=== PATIENT | male | born 1970 | race African-American/Black ===

== ENCOUNTER 2020-03-13 09:29 | Emergency (ER) | payer OTHER, MEDICAID ==
[2020-03-14] MEDS ORDERED: P50 MT (13:42)
[2020-03-14] MEDS ORDERED: AZIT250T12 MT (13:42)
[2020-03-14] MEDS ORDERED: ALBU6.7H9 INH (13:52)
== END 2020-03-13 09:40 | disposition left against medical advice (07) ==
LOC: ER 09:29
DX: R06.02 Shortness of breath (principal); R05 Cough; R07.89 Other chest pain; Z53.21 Procedure and treatment not carried out due to patient leaving prior to being seen by health care provider

== ENCOUNTER 2020-03-14 10:55 | Emergency (ER) | payer OTHER, MEDICAID ==
[~2020-03-14] VITALS: Ht 193 cm; Wt 87.0 kg
[2020-03-14] MEDS ORDERED: IPRATROPIUM BROMIDE (0.02%) 0.5MG/2.5ML NEB HHN STA (11:21)
[2020-03-14] MEDS ORDERED: ALBUTEROL (0.083%) 2.5MG/3ML NEB HHN STA (11:21)
[2020-03-14] MEDS ORDERED: PREDNISONE 20MG TABLET PO STA (11:21)
[2020-03-14] MEDS ORDERED: METHYLPREDNISOLONE SOD SUCC 125 MG/2 ML VIAL IV ONE (11:30)
[2020-03-14] MEDS ORDERED: CEFTRIAXONE 1 G PREMIX 50 ML IV ONE (11:30)
[2020-03-14] MEDS ORDERED: AZITHROMYCIN 500 MG in DEXT 5% WATER 250 ML IV SCH (11:30)
[2020-03-14 11:58] LABS: CHLORIDE 102 mEq/L (98-107)
[2020-03-14 12:05] LABS: BASOPHILS % 0.4 % (0.0-2.0); EOSINOPHILS % 3.6 % (0.0-5.0); HEMATOCRIT. 49.3 % (42.0-52.0); HEMOGLOBIN. 16.7 g/dL (14.0-18.0); LYMPHOCYTES % 25.5 % (20.0-50.0); MEAN CORPUSCULAR VOLUME 88.9 fL (80.0-94.0); MEAN PLATELET VOLUME 7.4 fl (7.4-10.4); NEUTROPHILS % 62.5 % (40.0-76.0); PLATELET 238 x1000/uL (130-400); RED BLOOD CELL COUNT 5.55 mill/uL (4.7-6.1); RED CELL DISTRIBUTION WIDTH 12.4 % (11.6-14.6)
[2020-03-14] MEDS ORDERED: AZIT250T12 MT (13:42)
[2020-03-14] MEDS ORDERED: P50 MT (13:42)
[2020-03-14] MEDS ORDERED: ALBU6.7H9 INH (13:52)
[2020-03-14 18:30] VITALS: BP 138/89
== END 2020-03-14 13:00 | disposition home or self-care (01) ==
LOC: ER 10:55 → CANBEDREQ 21:27
DX: J06.9 Acute upper respiratory infection, unspecified (principal); R05 Cough; I10 Essential (primary) hypertension; F17.210 Nicotine dependence, cigarettes, uncomplicated; F12.10 Cannabis abuse, uncomplicated; Z03.818 Encounter for observation for suspected exposure to other biological agents ruled out; Z90.49 Acquired absence of other specified parts of digestive tract
CPT/HCPCS: 36415; 71045; 80053; 83880; 84484; 85025; 87635; 93005; 96365; 96368; 96375; 99285; J0456; J0696; J2930; J7060; J7512; Z7610

== ENCOUNTER 2020-04-14 14:16 | Emergency (ER) | payer OTHER, MEDICAID ==
[~2020-04-14] VITALS: Ht 193 cm; Wt 86.3 kg
[~2020-04-14 14:16] MED LIST: ALBU6.7H9 INH; AZIT250T12 MT; P50 MT
[2020-04-14] MEDS ORDERED: PREDNISONE 20MG TABLET PO STA (15:24)
[2020-04-14] MEDS ORDERED: ALBUTEROL 6.7GM HFA INHALER ORI ONE ×3 (15:30)
[2020-04-14 17:00] VITALS: BP 128/84
== END 2020-04-14 17:15 | disposition home or self-care (01) ==
LOC: ER 14:16
DX: J44.1 Chronic obstructive pulmonary disease with (acute) exacerbation (principal); I10 Essential (primary) hypertension; F17.200 Nicotine dependence, unspecified, uncomplicated; Z71.6 Tobacco abuse counseling; Z98.890 Other specified postprocedural states
CPT/HCPCS: 71045; 93005; 94640; 99283; 99406; J7512; Z7610

== ENCOUNTER 2020-04-26 21:34 | Emergency (ER) | payer OTHER, MEDICAID ==
[~2020-04-26] VITALS: Ht 193 cm; Wt 90.7 kg
[2020-04-26] MEDS ORDERED: ALBUTEROL (0.083%) 2.5MG/3ML NEB HHN STA (21:37)
[2020-04-26] MEDS ORDERED: IPRATROPIUM BROMIDE (0.02%) 0.5MG/2.5ML NEB HHN STA (21:37)
[2020-04-26] MEDS ORDERED: PREDNISONE 20MG TABLET PO STA (21:37)
[2020-04-26] MEDS ORDERED: MAGNESIUM 2 G PREMIX 50 ML IV ONE (21:45)
[2020-04-26] MEDS ORDERED: LEVOFLOXACIN 750MG PREMIX 150 ML IV ONE (21:45)
[2020-04-26] MEDS ORDERED: FENTANYL CITRATE/PF 50MCG/ML 2ML VIAL IV ONE (23:00)
[2020-04-26] MEDS ORDERED: P50 PO (23:27)
[2020-04-26] MEDS ORDERED: LEVO500T89 PO (23:28)
[2020-04-26 23:34] LABS: BASOPHILS % 0.4 % (0.0-2.0); EOSINOPHILS % 5.2 % (0.0-5.0); HEMATOCRIT. 43.1 % (42.0-52.0); HEMOGLOBIN. 14.5 g/dL (14.0-18.0); LYMPHOCYTES % 24.5 % (20.0-50.0); MEAN CORPUSCULAR HEMOGLOBIN 30.1 pg (28.0-32.0); MEAN CORPUSCULAR VOLUME 89.5 fL (80.0-94.0); MEAN PLATELET VOLUME 7.6 fl (7.4-10.4); MONOCYTES % 6.6 % (2.0-8.0); NEUTROPHILS % 63.3 % (40.0-76.0); PLATELET 207 x1000/uL (130-400); RED BLOOD CELL COUNT 4.82 mill/uL (4.7-6.1); RED CELL DISTRIBUTION WIDTH 13.2 % (11.6-14.6)
[2020-04-26 23:36] VITALS: BP 142/92
[2020-04-26 23:41] LABS: CHLORIDE 108 mEq/L (98-107)
== END 2020-04-27 00:07 | disposition home or self-care (01) ==
LOC: ER 21:37 → EDBEDREQ 23:09 → EDBEDREQTM 23:09 → ER 04-27 00:07 → CANBEDREQ 04-27 08:20
DX: J44.1 Chronic obstructive pulmonary disease with (acute) exacerbation (principal); Z03.818 Encounter for observation for suspected exposure to other biological agents ruled out; Z87.891 Personal history of nicotine dependence
CPT/HCPCS: 36415; 71045; 80048; 85025; 93005; 94640; 96365; 96367; 99285; C9803; J1956; J3475; J7512; U0003; Z7610; 87635

== ENCOUNTER 2020-05-27 11:48 | Inpatient (IN) | payer OTHER, MEDICAID ==
[~2020-05-27] VITALS: Ht 193 cm; Wt 84.0 kg
[~2020-05-27 11:48] MED LIST changes: +LEVO500T89 PO; +P50 PO
[2020-05-27 14:08] LABS: BASOPHILS % 0.6 % (0.0-2.0); EOSINOPHILS % 5.5 % (0.0-5.0); HEMATOCRIT. 44.3 % (42.0-52.0); HEMOGLOBIN. 14.9 g/dL (14.0-18.0); LYMPHOCYTES % 32.4 % (20.0-50.0); MEAN CORPUSCULAR HEMOGLOBIN 30.5 pg (28.0-32.0); MEAN CORPUSCULAR VOLUME 90.3 fL (80.0-94.0); MEAN PLATELET VOLUME 7.8 fl (7.4-10.4); NEUTROPHILS % 54.5 % (40.0-76.0); PLATELET 235 x1000/uL (130-400); RED CELL DISTRIBUTION WIDTH 13.3 % (11.6-14.6)
[2020-05-27 14:20] LABS: CHLORIDE 107 mEq/L (98-107)
[2020-05-27] MEDS ORDERED: AZITHROMYCIN 500 MG TABLET PO ONE (20:00)
[2020-05-27] MEDS ORDERED: GUAIFENESIN 200MG/10ML SUGAR FREE UDC PO PRN (21:15)
[2020-05-27] MEDS ORDERED: DOCUSATE SODIUM 100MG CAPSULE PO PRN (21:15)
[2020-05-27] MEDS ORDERED: ONDANSETRON HCL 4MG/2ML INJ IV PRN (21:15)
[2020-05-27] MEDS ORDERED: ACETAMINOPHEN 325MG TABLET PO PRN ×2 (21:15)
[2020-05-27] MEDS ORDERED: DIPHENHYDRAMINE 50MG/ML VIAL IV PRN (21:15)
[2020-05-27] MEDS: ENOXAPARIN 40MG/0.4ML SYR SUBCUT SCH (22:11)
[2020-05-27] MEDS ORDERED: CEFTRIAXONE 1 G PREMIX 50 ML IV SCH (22:15)
[2020-05-27] MEDS: IPRATROPIUM/ALBUTEROL 0.5-3(2.5)MG/3ML NEB HHN SCH (22:35)
[2020-05-28 01:00] VITALS: BP 125/75
[2020-05-28] MEDS: IPRATROPIUM/ALBUTEROL 0.5-3(2.5)MG/3ML NEB HHN SCH (03:15)
[2020-05-28 07:13] LABS: BASOPHILS % 0.6 % (0.0-2.0); EOSINOPHILS % 11.6 % (0.0-5.0); MEAN CORPUSCULAR HEMOGLOBIN 30.6 pg (28.0-32.0); MEAN CORPUSCULAR VOLUME 89.8 fL (80.0-94.0); MEAN PLATELET VOLUME 7.3 fl (7.4-10.4); MONOCYTES % 6.9 % (2.0-8.0); NEUTROPHILS % 43.9 % (40.0-76.0); PLATELET 204 x1000/uL (130-400); RED BLOOD CELL COUNT 4.57 mill/uL (4.7-6.1); RED CELL DISTRIBUTION WIDTH 13.4 % (11.6-14.6)
[2020-05-28 07:27] LABS: CHLORIDE 109 mEq/L (98-107)
[2020-05-28 07:37] LABS: LDL CHOLESTEROL 109 mg/dL (5-100)
[2020-05-28 07:39] LABS: HDL CHOLESTEROL 82 mg/dL (40-59)
[2020-05-28 08:00] VITALS: BP 126/71
[2020-05-28 12:00] VITALS: BP 128/63
[2020-05-28 16:00] VITALS: BP 130/73
[2020-05-28 20:00] VITALS: BP 129/87
[2020-05-28] MEDS ORDERED: AZITHROMYCIN 500 MG in DEXT 5% WATER 250 ML IV SCH (21:15)
[2020-05-28] MEDS: ENOXAPARIN 40MG/0.4ML SYR SUBCUT SCH ×2 (22:34→23:09)
[2020-05-28] MEDS: AZITHROMYCIN 500MG in DEXTROSE 5% WATER 250ML IV SCH (23:09)
[2020-05-29] VITALS: BP 130/91
[2020-05-29] MEDS: CEFTRIAXONE 1,000 MG in DEXTROSE 5% WATER 50 ML IV SCH ×2 (00:08→21:53)
[2020-05-29 04:00] VITALS: BP 145/85
[2020-05-29 08:00] VITALS: BP 119/75
[2020-05-29] MEDS: IPRATROPIUM/ALBUTEROL 0.5-3(2.5)MG/3ML NEB HHN SCH ×3 (09:25→20:08)
[2020-05-29 12:00] VITALS: BP 127/86
[2020-05-29 16:00] VITALS: BP 123/81
[2020-05-29 20:00] VITALS: BP 132/68
[2020-05-29] MEDS: AZITHROMYCIN 500MG in DEXTROSE 5% WATER 250ML IV SCH (21:10)
[2020-05-30] VITALS: BP 135/83
[2020-05-30] MEDS: IPRATROPIUM/ALBUTEROL 0.5-3(2.5)MG/3ML NEB HHN SCH ×2 (01:10→08:47)
[2020-05-30 04:00] VITALS: BP 117/81
[2020-05-30 08:00] VITALS: BP 134/88
[2020-05-30 12:00] VITALS: BP 133/78
[2020-05-30] MEDS ORDERED: AZIT500T3 MT (12:27)
[2020-05-30] MEDS ORDERED: ALBU2SYR3 MT (12:27)
[2020-05-30 13:15] VITALS: BP 133/78
[2020-05-30] MEDS ORDERED: AZITHROMYCIN 500 MG TABLET PO SCH (21:00)
== END 2020-05-30 13:45 | disposition home or self-care (01) | DRG 202 ==
LOC: ER 11:48 → EDBEDREQ 17:54 → 7WST 19:49 → EDBEDREQ 19:50 → EDBEDREQTM 19:50 → ENRESERV 23:09 → 5WST 05-28 22:41
PROVIDERS: ADMIT Family Medicine; ATTEND Family Medicine
DX: J45.901 Unspecified asthma with (acute) exacerbation (principal); J15.9 Unspecified bacterial pneumonia; J44.0 Chronic obstructive pulmonary disease with (acute) lower respiratory infection; F17.290 Nicotine dependence, other tobacco product, uncomplicated; R00.1 Bradycardia, unspecified; Z20.822 Contact with and (suspected) exposure to COVID-19; F41.9 Anxiety disorder, unspecified; E78.5 Hyperlipidemia, unspecified; Z79.51 Long term (current) use of inhaled steroids; Z79.899 Other long term (current) drug therapy; Z79.1 Long term (current) use of non-steroidal anti-inflammatories (NSAID)
CPT/HCPCS: 36415; 71045; 71250; 80053; 80061; 83880; 84443; 84484; 85025; 93005; 93306; 94640; 99285; J0456; J0696; J1650; J7060; U0003

== ENCOUNTER 2020-10-12 11:37 | Emergency (ER) | payer OTHER, MEDICAID ==
[~2020-10-12] VITALS: Ht 193 cm; Wt 87.0 kg
[~2020-10-12 11:37] MED LIST changes: +ALBU2SYR3 MT; +AZIT500T3 MT
[2020-10-12 12:04] VITALS: BP 134/87
[2020-10-12] MEDS ORDERED: ALBU6.7H9 INH (12:41)
[2020-10-12] MEDS ORDERED: ALBU05 NEB (12:41)
[2020-10-12] MEDS ORDERED: FLUT1DIS3 INH (12:41)
== END 2020-10-12 12:58 | disposition home or self-care (01) ==
LOC: ER 11:37
DX: Z76.0 Encounter for issue of repeat prescription (principal); J45.909 Unspecified asthma, uncomplicated
CPT/HCPCS: 99283

== ENCOUNTER 2021-02-16 08:17 | Emergency (ER) | payer OTHER, MEDICAID ==
[~2021-02-16] VITALS: Ht 193 cm; Wt 87.0 kg
[~2021-02-16 08:17] MED LIST changes: +ALBU05 NEB; -ALBU2SYR3 MT; +FLUT1DIS3 INH
[2021-02-16 08:22] VITALS: BP 118/51
[2021-02-16] MEDS ORDERED: FLUT1BLS9 IH (08:27)
[2021-02-16] MEDS ORDERED: ALBU6.7H9 INH (08:35)
[2021-02-16] MEDS ORDERED: FLUT1DIS3 INH (08:35)
== END 2021-02-16 08:47 | disposition home or self-care (01) ==
LOC: ER 08:17
DX: J45.901 Unspecified asthma with (acute) exacerbation (principal); Z79.899 Other long term (current) drug therapy
CPT/HCPCS: 99283